=== PATIENT | male | born 1970 | race Two or more races ===

== ENCOUNTER 2025-06-23 18:52 | Emergency (ER) | payer OTHER ==
[~2025-06-23] VITALS: Ht 188 cm; Wt 99.8 kg
[2025-06-23] MEDS ORDERED: ORPHENADRINE CITRATE 30 MG/ML AMPUL IM ONE (21:15)
[2025-06-23] MEDS ORDERED: KETOROLAC TROMETHAMINE 60 MG VIAL IM ONE ×2 (21:15→21:26)
[2025-06-23] MEDS ORDERED: DEXAMETHASONE SODIUM PHOSPHATE 4 MG/ML VIAL IM ONE (21:15)
[2025-06-23] MEDS ORDERED: RELAFEN DS1000 MG PO (21:20)
[2025-06-23] MEDS ORDERED: MEDROLPACK PO (21:20)
[2025-06-23] MEDS ORDERED: NORFLEX100MG PO (21:20)
[2025-06-23] MEDS ORDERED: DEXAMETHASONE SODIUM PHOSPHATE 4 MG/ML VIAL ONE (21:26)
[2025-06-23] MEDS ORDERED: ORPHENADRINE CITRATE 30 MG/ML AMPUL ONE (21:26)
== END 2025-06-23 22:24 | disposition home or self-care (01) ==
LOC: ER 18:52
DX: M54.9 Dorsalgia, unspecified (principal)